=== PATIENT | male | born 1950 | race Caucasian/White ===

== ENCOUNTER → 2017-06-02 | Outpatient (CLI) | payer OTHER, BC ==
[~2017-06-02] VITALS: Ht 160 cm; Wt 124.3 kg
[~2017-06-02] MED LIST: ALPRAZOLAM ER0.5 MG PO; ASPIR 8181 M1 PO; COREG25 M1 PO; COZAAR100 MG PO; FLOMAX0.4 MG PO; HYDROCHLOROTHIA25 MG PO; NORVASC5 MG PO; PRILOSEC20 MG PO; PROSCAR5 MG PO; SYNTHROID75 MCG PO; VENTOLIN HFA18 GM IH
[2017-06-02 14:07] LABS: ANION GAP 9 MEQ/L (2-14); CHLORIDE 100 MEQ/L (99-109); POTASSIUM 3.5 MEQ/L (3.7-5.4); SAMPLE HEMOLYSIS CHECK 0; SAMPLE ICTERIC CHECK 0; SAMPLE LIPEMIA CHECK 0; SODIUM 139 MEQ/L (136-147)
[2017-06-02 14:13] LABS: GFR ESTIMATE (CALCULATED) > 59 mL/min/; GLUCOSE 87 mg/dL (70-99); UREA NITROGEN (BUN) 8 mg/dL (9-23)
== END | disposition home or self-care (01) ==
LOC: AMB 04-21 13:30
PROVIDERS: Anesthesiology
DX: Z12.11 Encounter for screening for malignant neoplasm of colon (principal); D12.2 Benign neoplasm of ascending colon; D12.3 Benign neoplasm of transverse colon; K57.30 Diverticulosis of large intestine without perforation or abscess without bleeding; K64.8 Other hemorrhoids; Z80.0 Family history of malignant neoplasm of digestive organs
CPT/HCPCS: 80048; 88305; 93005

== ENCOUNTER 2017-06-16 07:26 | Emergency (ER) | payer OTHER, BC ==
[~2017-06-16] VITALS: Ht 157.5 cm; Wt 125.0 kg
[2017-06-16 08:09] LABS: HEMATOCRIT 44.5 % (38.0-50.0); MCH 30.7 PG (29.0-34.0); MCHC 33.9 G/DL (30.0-36.0); MCV 90.4 FL (86-99); MEAN PLAT.VOLUME 9.7 uM^3 (9.0-12.4); PLATELET COUNT 253 K/uL (156-360); RBC DIS.WIDTH-CV 13.7 % (11.8-14.6); RBC DIS.WIDTH-SD 45.2 % (39-53); RED BLOOD COUNT 4.92 M/uL (4.00-5.50); WHITE BLOOD COUNT 14.9 K/uL (4.1-10.2)
[2017-06-16 08:16] LABS: CHLORIDE 104 mEq/L (99-109); POTASSIUM 3.7 mEq/L (3.7-5.4); SODIUM 140 mEq/L (136-147)
[2017-06-16 08:19] LABS: GLUCOSE 129 mg/dL (70-99)
[2017-06-16 08:20] LABS: ANION GAP 9 MEQ/L (2-14)
[2017-06-16 08:22] LABS: ALKALINE PHOSPHATASE 71 IU/L (3-129)
[2017-06-16 08:24] LABS: DIRECT BILIRUBIN 0.1 mg/dL (0.0-0.3)
[2017-06-16 08:26] LABS: LIPASE 60 U/L (1.0-51.0)
[2017-06-16 08:31] LABS: ADD MIUA? YES; BILIRUBIN NEGATIVE; BLOOD MODERATE; COLOR YELLOW ((YELLOW)); GLUCOSE (STRIP) NEGATIVE; KETONES NEGATIVE; LEUKOCYTES NEGATIVE; NITRITE NEGATIVE; PROTEIN (STRIP) 30; UROBILINOGEN 0.2 MG/DL (0.2-1.0)
[2017-06-16 08:38] LABS: BACTERIA RARE /HPF; EPITHELIAL CELLS RARE /HPF; MUCUS TRACE /LPF; RED BLOOD CELLS 15-20 /HPF (0-5); UCUL ADDED? NO; WHITE BLOOD CELLS 0-5 /HPF (0-5)
[2017-06-16 08:56] LABS: TOTAL BILIRUBIN 0.4 mg/dL (0.0-1.0)
[2017-06-16 08:57] LABS: GFR ESTIMATE (CALCULATED) > 59 mL/min/
[2017-06-16 08:58] LABS: UREA NITROGEN (BUN) 19 mg/dL (9-23)
[2017-06-16 11:00] VITALS: BP 128/67
== END 2017-06-16 11:00 | disposition home or self-care (01) ==
LOC: EME 07:26
DX: N20.0 Calculus of kidney (principal); N21.0 Calculus in bladder; I10 Essential (primary) hypertension; K21.9 Gastro-esophageal reflux disease without esophagitis; F41.9 Anxiety disorder, unspecified; Z86.73 Personal history of transient ischemic attack (TIA), and cerebral infarction without residual deficits; Z88.1 Allergy status to other antibiotic agents; Z88.8 Allergy status to other drugs, medicaments and biological substances; Z90.49 Acquired absence of other specified parts of digestive tract; Z79.82 Long term (current) use of aspirin
CPT/HCPCS: 74176; 80048; 80076; 81003; 83690; 85027; 99281; 99284

== ENCOUNTER → 2017-09-29 | Outpatient (CLI) | payer OTHER, BC ==
[~2017-09-29] VITALS: Ht 157.5 cm; Wt 74.8 kg
[~2017-09-29] MED LIST changes: +BITTER MELON PO; +CO Q-10100 MG PO; +FLONASE ALLERG9.9 ML BOTH NARES; +LUNESTA3 MG PO; +NEURONTIN100 MG PO; +POLICOSANOL-GA1 EACH PO; +POTASSIUM/MAGNESIUM PO; +VITAMIN B-625 MG PO; +VITAMIN D32000 UNI1 PO; +[UNRECOGNIZED DRUG - OTHER] IH
[2017-09-29 14:18] LABS: HEMATOCRIT 48.1 % (38.0-50.0); HEMOGLOBIN 16.7 G/DL (12.5-16.6); MCH 31.1 PG (29.0-34.0); MCHC 34.7 G/DL (30.0-36.0); MCV 89.6 FL (86-99); PLATELET COUNT 245 K/uL (156-360); RBC DIS.WIDTH-SD 44.1 % (39-53); RED BLOOD COUNT 5.37 M/uL (4.00-5.50); WHITE BLOOD COUNT 11.2 K/uL (4.1-10.2)
== END | disposition home or self-care (01) ==
LOC: AMB 12:50
PROVIDERS: Anesthesiology
DX: Z12.11 Encounter for screening for malignant neoplasm of colon (principal); D17.5 Benign lipomatous neoplasm of intra-abdominal organs; K62.1 Rectal polyp; Z86.010 Personal history of colon polyps; K64.8 Other hemorrhoids; Z80.0 Family history of malignant neoplasm of digestive organs; E66.9 Obesity, unspecified; Z68.43 Body mass index [BMI] 50.0-59.9, adult; E11.9 Type 2 diabetes mellitus without complications; I10 Essential (primary) hypertension; J30.9 Allergic rhinitis, unspecified; Z79.82 Long term (current) use of aspirin
CPT/HCPCS: 85027; 88305

== ENCOUNTER 2018-01-26 12:18 | Emergency (ER) | payer OTHER, BC ==
[~2018-01-26] VITALS: Ht 157.5 cm; Wt 127.1 kg
[2018-01-26 13:15] LABS: HEMATOCRIT 45.4 % (38.0-50.0); HEMOGLOBIN 15.8 G/DL (12.5-16.6); MCH 30.4 PG (29.0-34.0); MCHC 34.8 G/DL (30.0-36.0); MCV 87.5 FL (86-99); PLATELET COUNT 239 K/uL (156-360); RBC DIS.WIDTH-CV 13.8 % (11.8-14.6); RBC DIS.WIDTH-SD 43.9 % (39-53); RED BLOOD COUNT 5.19 M/uL (4.00-5.50); WHITE BLOOD COUNT 11.7 K/uL (4.1-10.2)
[2018-01-26 13:23] LABS: CHLORIDE 100 mEq/L (99-109); POTASSIUM 4.2 mEq/L (3.7-5.4); SODIUM 138 mEq/L (136-147)
[2018-01-26 13:25] LABS: GLUCOSE 103 mg/dL (70-99)
[2018-01-26 13:28] LABS: CREATININE 0.8 mg/dL (0.6-1.3); GFR ESTIMATE (CALCULATED) > 59 mL/min/ (58.99-99999)
[2018-01-26 13:29] LABS: UREA NITROGEN (BUN) 14 mg/dL (9-23)
[2018-01-26 13:35] LABS: TROP-I INTERPRETATION NEGATIVE; TROPONIN-I < 0.01 ng/mL (0.0-0.30)
[2018-01-26 14:56] VITALS: BP 135/82
== END 2018-01-26 14:58 | disposition home or self-care (01) ==
LOC: EME 12:18
DX: R07.9 Chest pain, unspecified (principal); I11.0 Hypertensive heart disease with heart failure; I50.9 Heart failure, unspecified; F41.9 Anxiety disorder, unspecified; Z87.442 Personal history of urinary calculi; Z86.73 Personal history of transient ischemic attack (TIA), and cerebral infarction without residual deficits; Z90.49 Acquired absence of other specified parts of digestive tract; Z88.1 Allergy status to other antibiotic agents; Z88.8 Allergy status to other drugs, medicaments and biological substances
CPT/HCPCS: 71046; 80048; 84484; 85027; 93005; 99281; 99284